=== PATIENT | male | born 1980 | race Two or more races ===

== ENCOUNTER → 2021-02-22 | Outpatient (CLI) | payer BC ==
--- NOTE | 2021-02-22 09:45 | KCIC ---
EXAMINATION: US US ABDOMEN COMPLETE CLINICAL HISTORY: Elevated LFT's, abdominal pain TECHNIQUE: Grayscale sonographic imaging of the abdomen obtained with color Doppler imaging and spect ral Doppler analysis as indicated. COMPARISON: None FINDINGS: Pancreas: Poorly visualized secondary to prominent overlying bowel gas. Liver: - Echotexture: Normal, homogeneous. - Echogenicity: Increased, suggestive of steatosis. - Surface contour: Smooth - Lesions: None Biliary: No intrahepatic biliary duct dilation. - CBD: 3 mm at the hilum. - Gallbladder: Normal caliber - Contents: No cholelithiasis - Wall: Normal - Other: No pericholecystic fluid. Spleen: - Craniocaudal length: 10.0 cm. - Lesions: None Right Kidney: - Renal length: 11.2 cm - Parenchyma: Normal parenchymal echogenicity. Normal parenchymal thickness. - Collecting system: No hydronephrosis. - Calculus: No echogenic, shadowing calculus. - Lesion: None Left Kidney: - Renal length: 11.2 cm - Parenchyma: Normal parenchymal echogenicity. Normal parenchymal thickness. - Collecting system: No hydronephrosis. - Calculus: No echogenic, shadowing calculus. - Lesion: None IVC: Poorly visualized. Abdominal Aorta: Poorly visualized. Ascites: None. IMPRESSION: Findings suggestive of hepatic steatosis. Poorly visualized pancreas. Electronically signed by: Patric Tanner DO (02/22/2021 9:42 AM) [id number]
== END ==
LOC: KCIC US 07:57
PROVIDERS: ATTEND Internal Medicine
DX: R94.5 Abnormal results of liver function studies (principal)
CPT/HCPCS: 76700